=== PATIENT | female | born 1940 | race Caucasian/White ===

== ENCOUNTER 2019-06-28 10:47 | Inpatient (IN) | payer MEDICARE ==
[2019-06-28] VITALS (9 sets, daily range): BP systolic 127–160; BP diastolic 44–89; PULSE 97–108; TEMP 98–98.5
[~2019-06-28] VITALS: Ht 160 cm; Wt 70.3 kg
[2019-06-28] MEDS ORDERED: LIPITOR 10MG10 MG PO (11:07)
[2019-06-28] MEDS ORDERED: ADVIL200 MG PO (11:08)
[2019-06-28] MEDS ORDERED: NEURONTIN300 MG/CAP PO (11:08)
[2019-06-28 13:30] LABS: SYNOVIAL FL. MONONUCLEAR 3.1 % (0-75); SYNOVIAL FLUID RBC 5000 /mm3 (0-0); SYNOVIAL FLUID WBC 140188 /mm3 (200-600)
[2019-06-28 13:37] LABS: SYNOVIAL FLUID APPEARANCE CLOUDY; SYNOVIAL FLUID COLOR YELLOW
[2019-06-28 14:20] LABS: BASO % 0.3 % (0.0-2.0); EOS # 0.1 (0.0-0.7); EOS % 0.6 % (0-4.0); GRAN # 10.9 (1.4-6.5); GRAN % 84.3 % (42.2-75.2); HEMOGLOBIN 14.5 g/dl (12.5-16.0); LYMPH # 1.1 (1.2-3.4); LYMPH % 8.8 % (20.0-51.0); MEAN CELL VOLUME 86 fl (80.0-100.0); MEAN CORPUSCULAR HEMOGLOBIN 29 pg (27.0-31.0); MEAN CORPUSCULAR HGB CONC 34 g/dl (33.0-37.0); MEAN PLATELET VOLUME 9.7 fl (7.4-10.4); MONO # 0.7 (0.1-0.6); MONO % 5.5 % (1.7-9.3); PLATELET COUNT 274 K/mm3 (130-400); RED BLOOD COUNT 4.98 M/mm3 (4.10-5.30); REDCELL DISTRIBUTION WIDTH-CV 13.4 % (11.5-14.5)
[2019-06-28 14:31] LABS: ALBUMIN 4.6 gm/dL (3.5-5.0); BILIRUBIN,TOTAL 0.8 mg/dL (0.0-1.0); CALCIUM 10.7 mg/dL (8.4-10.2); CREATININE, serum 0.8 (0.52-1.25); POTASSIUM 3.7 mmol/L (3.4-5.0); TOTAL PROTEIN 8.5 gm/dL (6.4-8.2)
[2019-06-28 15:05] LABS: ERYTHROCYTE SEDIMENTATION RATE 37 mm/hr (0-30)
--- NOTE | 2019-06-28 15:27 | NUR ---
Vancomycin Initial Dosing Pharmacy Note Ordering provider: Elver Quiñones MD Indication/duration: SEPTIC ARTHRITIS Relevant comorbidities: NONE LABS: WBC 12.9, SCr 0.8, CrCl ~40 Recommendation: VANCOMYCIN 17 MG/KG Maintenance dose: 1.25 grams every 24 hours Trough goal: 15-20 ug/mL. TROUGH 07/02/19 @ 1530.
[2019-06-28 15:30] LABS: COLLECTION METHOD CLEAN CATCH
[2019-06-28 15:41] LABS: MUCOUS Present /lpf; PH 5 (5-8); SQUAMOUS EPITHELIAL 0-2 /hpf; URINE APPEARANCE Clear; URINE BACTERIA Moderate /hpf; URINE BILIRUBIN Negative (NEGATIVE); URINE BLOOD 2+ (NEGATIVE); URINE COLOR Yellow; URINE GLUCOSE Negative (NEGATIVE); URINE KETONE 1+ (NEGATIVE); URINE LEUKOCYTE ESTERASE Negative (NEGATIVE); URINE NITRATE Positive (NEGATIVE); URINE PROTEIN(semi-quant) Negative (NEGATIVE); URINE UROBILINOGEN Negative (NEGATIVE)
--- NOTE | 2019-06-28 18:40 | NUR ---
PATIENT ARRIVED TO ROOM 347 VIA BED FROM PACU. PATIENT IS DROWSY BUT EASILY AROUSABLE. POST-OP VSS. LEFT SHOULDER DRESSING IS CD&I. HEMOVAC IN PLACE WITH LUE TO SLING. CALL LIGHT WITHIN REACH. DAUGHTER PRESENT AT THE BEDSIDE. PATIENT DENIES ANY NEEDS AT THIS TIME.
--- NOTE | 2019-06-28 18:45 | NUR ---
Report received. Assumed care for night order selector. Transported to room 347 via bed from PACU. A&Ox3-very drowsy. Denies pain/nausea/shortness of breath. Post op vitals initiated and WNL. IV to right inner wrist, 22g, infusing LR without difficulty. Dressing to left shoulder-C/D/I-bulky white with foam tape. Left extremity in soft sling. Repositioned with pillow support/ice applied. Clear liquid diet provided. Instructed to call when needs to void. Verbalizes understanding. Call light in reach. Bed in low position/wheels locked. Will monitor.
--- NOTE | 2019-06-28 19:26 | NUR ---
REPORT GIVEN TO DIANA ARRINGTON
--- NOTE | 2019-06-29 02:50 | NUR ---
C/O pain to IV to right inner wrist. Noted to be swollen and tender to touch. DCd at this time. States she is a hard stick and anesthesia placed current IV in OR. States in past she has had to have a PICC line. WIll notify provider of status in AM as no IV meds are currently due-infectious disease consult this AM.
[2019-06-29 04:00] VITALS: BP 152/57; PULSE 109; TEMP 98.4
--- NOTE | 2019-06-29 06:00 | NUR ---
Tolerating PO. Pain controlled with PO pain meds as no IV access. Notified Ortho household personal assistant during visit of IV status. States probably will be a PICC line candidate-will discuss after infectious disease consults later day. Denies needs. Will monitor.
[2019-06-29 07:47] VITALS: BP 131/56; PULSE 96; TEMP 98.1
--- NOTE | 2019-06-29 08:00 | NUR ---
Patient in bed resting. Alert and oriented x 3. Shift assessment complete. Left upper extremity in sling. Bulky dressing in place, CDI. States mild pain 2/10 to shoulder. Patient to call when she needs additional pain medication. Denies further needs at this time.
[2019-06-29 08:30] LABS: BASO % 0.3 % (0.0-2.0); EOS % 0.1 % (0-4.0); GRAN # 10.9 (1.4-6.5); GRAN % 78.8 % (42.2-75.2); LYMPH # 1.7 (1.2-3.4); LYMPH % 12.3 % (20.0-51.0); MEAN CELL VOLUME 87 fl (80.0-100.0); MEAN CORPUSCULAR HGB CONC 33 g/dl (33.0-37.0); MEAN PLATELET VOLUME 9.5 fl (7.4-10.4); MONO # 1.1 (0.1-0.6); PLATELET COUNT 245 K/mm3 (130-400); RED BLOOD COUNT 3.97 M/mm3 (4.10-5.30); REDCELL DISTRIBUTION WIDTH-CV 13.4 % (11.5-14.5)
[2019-06-29 08:39] LABS: CALCIUM 9.1 mg/dL (8.4-10.2); CREATININE, serum 0.72 (0.52-1.25); POTASSIUM 3.6 mmol/L (3.4-5.0)
[2019-06-29 08:41] LABS: HEMATOCRIT 34.4 % (37.0-47.0); HEMOGLOBIN 11.3 g/dl (12.5-16.0); MEAN CORPUSCULAR HEMOGLOBIN 28 pg (27.0-31.0)
[2019-06-29 11:44] VITALS: BP 127/51; PULSE 96; TEMP 98.8
--- NOTE | 2019-06-29 15:40 | NUR ---
adz worker met with patient to discuss discharge planning. Patient states she lives with [place] in [place], [place] and will return there upon discharge. Patient's primary care provider is Dr Linnea Spencer. Patient states she is aware that she will need continued IV antibiotics and desires to take them at the [facility] as an outpatient. Patient states that she has children that reside in [place] and can assist with transportation. 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 Worker gave a referral to the [facility] and faxed clinical information. Will await final orders for discharge.
[2019-06-29 15:42] VITALS: BP 140/57; PULSE 94; TEMP 98.5
--- NOTE | 2019-06-29 18:00 | NUR ---
Contacted Dr. Quiñones, unable to obtain IV access. Rocephin ordered IM one time dose.
--- NOTE | 2019-06-29 18:00 | NUR ---
Contacted anesthesia about restarting IV.
--- NOTE | 2019-06-29 18:54 | NUR ---
Patient has done well throughout the day. Independent in room. Denies pain at this time. Denies further needs at this time. Will report off to warehouse worker 2nd shift.
[2019-06-29 19:52] VITALS: BP 160/57; PULSE 113; TEMP 101.6
--- NOTE | 2019-06-29 20:10 | NUR ---
Pt. sitting up in bed at this time. Pt. is A&OX3, assessment complete. IV started by MARTELL Olguin at this time. 20G to lt. wrist. IV fluids resumed, vanco started. Dressing to lt. shoulder CDI. Pt. reports pain at a 5 on pain scale, will give pain meds per orders. Pt. denies further needs, call light within reach.
[2019-06-29 23:35] VITALS: BP 170/61; PULSE 114; TEMP 99.5
[2019-06-30 05:00] VITALS: BP 138/50; PULSE 91; TEMP 98.6
[2019-06-30 06:24] LABS: BASO % 0.4 % (0.0-2.0); EOS % 0.4 % (0-4.0); GRAN # 8.3 (1.4-6.5); GRAN % 74.1 % (42.2-75.2); LYMPH # 1.6 (1.2-3.4); LYMPH % 14.6 % (20.0-51.0); MEAN CELL VOLUME 86 fl (80.0-100.0); MEAN CORPUSCULAR HEMOGLOBIN 28 pg (27.0-31.0); MEAN CORPUSCULAR HGB CONC 33 g/dl (33.0-37.0); MEAN PLATELET VOLUME 9.9 fl (7.4-10.4); MONO # 1.1 (0.1-0.6); MONO % 10.1 % (1.7-9.3); PLATELET COUNT 242 K/mm3 (130-400); RED BLOOD COUNT 3.87 M/mm3 (4.10-5.30); REDCELL DISTRIBUTION WIDTH-CV 13.2 % (11.5-14.5)
[2019-06-30 06:29] LABS: HEMATOCRIT 33.2 % (37.0-47.0)
[2019-06-30 06:38] LABS: CALCIUM 9.1 mg/dL (8.4-10.2); CREATININE, serum 0.7 (0.52-1.25); POTASSIUM 3.3 mmol/L (3.4-5.0)
[2019-06-30 06:54] LABS: ERYTHROCYTE SEDIMENTATION RATE 83 mm/hr (0-30)
[2019-06-30 07:00] LABS: C-REACTIVE PROTEIN 13.9 mg/dL (0.0-0.9)
[2019-06-30 07:31] VITALS: BP 158/58; PULSE 99; TEMP 99.1
--- NOTE | 2019-06-30 08:00 | NUR ---
Patient in bed resting. Alert and oriented x 3. Shift assessment complete. Bandaids x 3 to left shoulder are CDI. Left arm in sling. Denies pain or further needs at this time.
[2019-06-30 11:15] VITALS: BP 150/58; PULSE 99; TEMP 99.4
[2019-06-30 15:17] VITALS: BP 159/97; PULSE 98; TEMP 98.9
--- NOTE | 2019-06-30 16:26 | NUR ---
C 40A Crew Chief was notified by hospitalist that one of patient's antibiotics will need administered three times per day and outpatient may not be a good option for patient upon discharge. SW met with the patient to discuss options. 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 Patient administering at home may not be good option for patient. CAROLA was advised by CAROLA Machado that Medicare may not cover these types of medications at home. SW discussed swing bed option with patient. Patient states she would like to avoid this and questions why outpatient antibiotics cannot be arranged, even with the above listed change. Patient states if SB is her only option, she would want to go to [facility]. CAROLA explained patient choice form. Patient understood and signed. CAROLA placed original in chart and faxed referral to [facility]. SW to continue to follow to ensure safe discharge.
--- NOTE | 2019-06-30 19:20 | NUR ---
Patient has done well throughout the day. Requested pain medications once throughout the day, given per orders. States mild aching to left shoulder, left arm maintained in sling. Denies further needs at this time. Reported off to corporate development manager.
--- NOTE | 2019-06-30 20:00 | NUR ---
PATIENT IN BED, IS ALERT AND ORIENTED X4. HAS RIGHT ARM PICC, IVF INFUSING WITHOUT PROBLEM. HAS LEFT ARM IN A SLING, NOTED 2 BANDAIDS TO LEFT SHOULDER, D/I. DENIES NEED FOR PAIN MEDS AT THIS TIME.
[2019-06-30 20:08] VITALS: BP 146/62; PULSE 98; TEMP 98.2
[2019-06-30 23:47] VITALS: BP 147/49; PULSE 104; TEMP 98.8
[2019-07-01 04:00] VITALS: BP 157/53; PULSE 101; TEMP 99
--- NOTE | 2019-07-01 05:00 | NUR ---
PATIENT ASSISTED TO BATHROOM, VOIDS AND PUTS SELF BACK TO BED. ICE PACK ONLY FOR SHOULDER DISCOMFORT, DENIES NEED FOR ORAL PAIN MEDS AT THIS TIME.
[2019-07-01 07:00] VITALS: BP 143/60; PULSE 98; TEMP 99
[2019-07-01 07:34] LABS: BASO # 0.1 (0.0-0.2); BASO % 0.5 % (0.0-2.0); EOS # 0.1 (0.0-0.7); EOS % 0.8 % (0-4.0); GRAN # 9.1 (1.4-6.5); GRAN % 79.2 % (42.2-75.2); HEMOGLOBIN 10.7 g/dl (12.5-16.0); LYMPH # 1.3 (1.2-3.4); MEAN CELL VOLUME 86 fl (80.0-100.0); MEAN CORPUSCULAR HEMOGLOBIN 29 pg (27.0-31.0); MEAN CORPUSCULAR HGB CONC 34 g/dl (33.0-37.0); MEAN PLATELET VOLUME 9.9 fl (7.4-10.4); MONO # 0.9 (0.1-0.6); MONO % 8.1 % (1.7-9.3); PLATELET COUNT 243 K/mm3 (130-400); RED BLOOD COUNT 3.71 M/mm3 (4.10-5.30)
[2019-07-01 07:42] LABS: HEMATOCRIT 31.8 % (37.0-47.0)
[2019-07-01 07:59] LABS: CALCIUM 9.2 mg/dL (8.4-10.2); CREATININE, serum 0.64 (0.52-1.25); MAGNESIUM 1.7 mg/dL (1.6-2.3); POTASSIUM 3.5 mmol/L (3.4-5.0)
--- NOTE | 2019-07-01 09:23 | NUR ---
PT SITTING UP IN BED, LUNGS CLEAR, DRESSING TO LEFT SHOULDER CDI ARN IN SLING. PT EATING AND DRINKING. PO POTASSIUM PROTOCOL FOLLOWED.
[2019-07-01] MEDS ORDERED: NORCO 325 MG-51 TAB PO (10:33)
[2019-07-01] MEDS ORDERED: CEFAZOLIN SODI100 ML IV (10:53)
[2019-07-01 10:56] VITALS: BP 136/81; PULSE 86; TEMP 97.4
[2019-07-01 16:23] VITALS: BP 166/73; PULSE 103; TEMP 98.6
--- NOTE | 2019-07-01 16:45 | NUR ---
[employer] Specialist met with patient to discuss outpatient vs. at home IV antibiotics as SW was informed by Malik that since patient does not have Medicare Pt D, the antibiotics would not be covered at home. Patient states she would like receive the antibiotics outpatient. YOLANDA Chun notified CAROLA that patient will need twice a day antibiotics as opposed to three times a day. CAROLA contacted [facility] and set up appointment for patient at 700 tomorrow for first infusion. CAROLA faxed discharge and pic line orders to [facility]. CAROLA contacted Nicole in scheduling and confirmed orders were received. CAROLA updated patient and patient's daughter, Shaneka (ph#[phone]), both were in agreeance. CAROLA presented IM form to patient. Patient understood and signed. CAROLA placed IM in patient chart. No additional concerns at this time.
--- NOTE | 2019-07-01 18:51 | NUR ---
DISCHARGE INSTRSUCTIONS PROVIDED TO PT AND FAMILY QUESTIONS SOLICITED AND ANSWERED. PT TAKEN TO FRONT BY WHEEL CHAIR.
[2019-07-03 05:10] LABS: C-REACTIVE PROTEIN 24.7 mg/dL (0.0-0.9)
== END 2019-07-01 18:52 | disposition home or self-care (01) | DRG 510 ==
LOC: COL.ER 10:47 → SURG 13:21
PROVIDERS: Family Medicine; Hospitalist; Orthopaedic Surgery; Physician Assistant; ADMIT Internal Medicine
PROC: 0R9K3ZX Drainage of Left Shoulder Joint, Percutaneous Approach, Diagnostic (ICD-10-PCS; 2019-06-28)
PROC: 02HV33Z Insertion of Infusion Device into Superior Vena Cava, Percutaneous Approach (ICD-10-PCS; 2019-06-28)
PROC: 0RBK0ZZ Excision of Left Shoulder Joint, Open Approach (ICD-10-PCS; principal; 2019-06-28 15:30)
PROC: 02HV33Z Insertion of Infusion Device into Superior Vena Cava, Percutaneous Approach (ICD-10-PCS; 2019-06-30)
DX: M00.012 Staphylococcal arthritis, left shoulder (principal); A41.9 Sepsis, unspecified organism; M94.212 Chondromalacia, left shoulder; E78.5 Hyperlipidemia, unspecified; Z96.641 Presence of right artificial hip joint; I10 Essential (primary) hypertension; E87.6 Hypokalemia; B95.61 Methicillin susceptible Staphylococcus aureus infection as the cause of diseases classified elsewhere
CPT/HCPCS: 99231-AI; 99232-AI; 99239; A4216; A4619; C1751; J0690; J0696; J2270; J2370; J2405; J2704; J3010; J3370; J7050; J7120